=== PATIENT | female | born 1970 | race Caucasian/White ===

== ENCOUNTER 2017-04-22 06:53 | Day surgery (SDC) | payer BC ==
[2017-04-16 10:36] LABS: BASOPHILS # (AUTO) 0.2 K/uL (0.00-0.22); BASOPHILS % (AUTO) 2.6 % (0.0-2.0); EOSINOPHILS # (AUTO) 0.3 K/uL (0-0.4); EOSINOPHILS % (AUTO) 3.5 % (0.0-4.0); HEMATOCRIT 40.1 % (36-48); HEMOGLOBIN 13.5 g/dL (12.0-16.0); LYMPHOCYTES # (AUTO) 1.8 K/uL (2.5-16.5); LYMPHOCYTES % (AUTO) 25.1 % (20.5-51.1); MEAN CORPUSCULAR HEMOGLOBIN 31 pg (27-31); MEAN CORPUSCULAR HGB CONC 34 g/dL (33-37); MEAN CORPUSCULAR VOLUME 92 fL (80-94); MONOCYTES # (AUTO) 0.4 K/uL (0.8-1.0); MONOCYTES % (AUTO) 5.1 % (1.7-9.3); NEUTROPHILS # (AUTO) 4.6 K/uL (1.8-7.7); NEUTROPHILS % (AUTO) 63.7 % (42.2-75.2); PLATELET COUNT (AUTO) 247 K/uL (140-450); RED BLOOD CELL COUNT(AUTO) 4.36 MIL/uL (4.20-5.40); RED CELL DISTRIBUTION WIDTH 12.1 % (11.6-13.7); WHITE BLOOD COUNT (AUTO) 7.3 K/uL (4.8-10.8)
--- NOTE | 2017-04-16 10:40 | NUR ---
PRE-OP - EKG DONE
[2017-04-16 10:42] LABS: ALBUMIN 3.7 g/dL (3.4-5.0); ANION GAP 13.6 (8-16); CARBON DIOXIDE 26.4 mmol/L (21-32); CREATININE 0.6 mg/dL (0.6-1.3); TOTAL BILIRUBIN 0.3 mg/dL (0.0-1.0)
[~2017-04-22] VITALS: Ht 162.6 cm; Wt 68.9 kg
[2017-04-22] MEDS ORDERED: BUPIVACAINE-MPF 0.25% 30 ML VIAL INJ ONE (09:52)
[2017-04-22] MEDS ORDERED: SEVOFLURANE 250 ML BTL INH ONE (10:02)
[2017-04-22] MEDS ORDERED: PROPOFOL 200 MG/20 ML VIAL IV ONE (10:02)
[2017-04-22] MEDS ORDERED: LIDOCAINE 2% 100 MG/5 ML SYR IVP ONE (10:02)
[2017-04-22] MEDS ORDERED: fentaNYL 0.05 MG/ML VIAL ONE (10:27)
[2017-04-22] MEDS ORDERED: MIDAZOLAM 2 MG/2 ML VIAL ONE (10:27)
[2017-04-22] MEDS ORDERED: ONDANSETRON 4 MG/2 ML VIAL IVP PRN (10:45)
[2017-04-22] MEDS ORDERED: HYDROmorphone PFS 2 MG/ML SYR IVP PRN (10:45)
[2017-04-22] MEDS ORDERED: NACL 0.9% 1,000 ML IV SCH (11:11)
[2017-04-22] MEDS ORDERED: MORPHINE SULFATE 2 MG/ML SYR IVP PRN (11:15)
[2017-04-22] MEDS ORDERED: ONDANSETRON 4 MG/2 ML VIAL IV PRN (11:15)
[2017-04-22] MEDS ORDERED: MORPHINE SULFATE 4 MG/ML SYR IV PRN (11:15)
[2017-04-22] MEDS ORDERED: HYDROcodone/APAP 5/325 MG 1 TAB TAB PO PRN (11:15)
[2017-04-22] MEDS ORDERED: HYDROmorphone 1 MG/ML AMP IVP PRN (11:15)
[2017-04-22] MEDS ORDERED: ONDANSETRON 4 MG/2 ML VIAL ONE (11:47)
[2017-04-22] MEDS ORDERED: HYDROmorphone PFS 2 MG/ML SYR ONE (11:47)
== END 2017-04-22 12:45 | disposition home or self-care (01) ==
LOC: MDS 06:53 → MMU 06:54 → MDS 12:45
PROVIDERS: ATTEND Surgery
DX: D24.1 Benign neoplasm of right breast (principal); E66.3 Overweight; K21.9 Gastro-esophageal reflux disease without esophagitis; I12.9 Hypertensive chronic kidney disease with stage 1 through stage 4 chronic kidney disease, or unspecified chronic kidney disease; N18.9 Chronic kidney disease, unspecified; E11.22 Type 2 diabetes mellitus with diabetic chronic kidney disease; F03.90 Unspecified dementia, unspecified severity, without behavioral disturbance, psychotic disturbance, mood disturbance, and anxiety; G40.909 Epilepsy, unspecified, not intractable, without status epilepticus; Z80.3 Family history of malignant neoplasm of breast; F17.210 Nicotine dependence, cigarettes, uncomplicated
CPT/HCPCS: 19120; 36415; 71010; 80053; 81025; 85025; 93005; J0690; J1170; J2001; J2250; J2405; J2704; J3010; J3490; J7060; J7120